=== PATIENT | female | born 1985 | race Caucasian/White ===

== ENCOUNTER 2020-04-23 23:29 | Emergency (ER) | payer OTHER ==
[~2020-04-23] VITALS: Ht 162.6 cm; Wt 117.9 kg
[2020-04-24] MEDS ORDERED: DIPHENHIST50 MG PO (00:03)
[2020-04-24 02:45] VITALS: BP 156/99
== END 2020-04-24 02:45 | disposition home or self-care (01) ==
LOC: M.ERS 23:29
DX: H53.452 Other localized visual field defect, left eye (principal); G43.909 Migraine, unspecified, not intractable, without status migrainosus; Z88.6 Allergy status to analgesic agent

== ENCOUNTER 2021-11-11 09:18 | Emergency (ER) | payer BC ==
[~2021-11-11] VITALS: Ht 180.3 cm; Wt 103.0 kg
[~2021-11-11 09:18] MED LIST: DIPHENHIST50 MG PO
[2021-11-11 12:55] LABS: INFLUENZA A ANTIGEN Negative (Negative); INFLUENZA B ANTIGEN Negative (Negative)
[2021-11-11] MEDS ORDERED: FLEXERIL PO (13:08)
[2021-11-11] MEDS ORDERED: PREDNISONE 20 M20 MG PO (13:08)
[2021-11-11 13:18] VITALS: BP 140/83
== END 2021-11-11 13:18 | disposition home or self-care (01) ==
LOC: M.ERS 09:18
PROVIDERS: Nurse Practitioner Family
DX: J06.9 Acute upper respiratory infection, unspecified (principal); Z20.822 Contact with and (suspected) exposure to COVID-19; J04.0 Acute laryngitis; G43.909 Migraine, unspecified, not intractable, without status migrainosus; Z88.5 Allergy status to narcotic agent